=== PATIENT | male | born 1945 | race Caucasian/White ===

== ENCOUNTER → 2017-02-14 | Outpatient (CLI) | payer MEDICARE, BC ==
--- NOTE | 2017-02-14 14:11 | RADRPT ---
PROCEDURE: XR right knee. CLINICAL INDICATION: Knee pain TECHNIQUE: AP weightbearing, PA weightbearing, lateral weightbearing and sunrise views are availab le for review. COMPARISON: None available FINDINGS: There is severe osteoarthrosis involving the lateral tibial femoral compartment and moderate osteoar throsis involving the medial tibial femoral compartment and the patellofemoral compartment. This is associated with joint space narrowing, subchondral sclerosis and osteophytosis. There is otherwise normal mineralization, architecture and alignment. No fractures are identified. No osseous lesions are identified. The soft tissues are unremarkable. IMPRESSION: Severe osteoarthrosis involving the lateral tibial femoral compartment and moderate osteoarthrosis i nvolving the medial tibial femoral compartment and the patellofemoral compartment. RPTAT: HGDB .Gerson Parker MD, Date Time Electronically viewed and signed by .Gerson Parker MD, on 02/14/2017 14:11 .B/
== END | disposition home or self-care (01) ==
LOC: HKI 16:18
PROVIDERS: ATTEND Orthopaedic Surgery
DX: M25.561 Pain in right knee (principal); M17.11 Unilateral primary osteoarthritis, right knee
CPT/HCPCS: 73564; G0463

== ENCOUNTER → 2017-04-20 | Outpatient (CLI) | payer MEDICARE, BC ==
--- NOTE | 2017-04-22 08:20 | RADRPT ---
PROCEDURE: Limited x-ray of both lower extremities. CLINICAL INDICATION: Pain TECHNIQUE: Single frontal view of both lower extremities was obtained weight bearing from the hips t o the calves. COMPARISON: None. FINDINGS: The hips are grossly unremarkable. There is severe joint space narrowing of the right knee lateral compartment. There is mild to moderate joint space narrowing of the left knee medial and lateral com partments. Tricompartmental osteophyte formation is seen involving both knees. IMPRESSION: 1. Severe right knee osteoarthritic degenerative changes. 2. Mild to moderate left knee osteoarthritic degenerative changes. RPTAT: QQ .Ty Villagran MD, MD Date Time Electronically viewed and signed by .Ty Villagran MD, MD on 04/22/2017 08:20 .R/
== END | disposition home or self-care (01) ==
LOC: HKI 10:58
PROVIDERS: ATTEND Orthopaedic Surgery
DX: M25.561 Pain in right knee (principal); M17.11 Unilateral primary osteoarthritis, right knee
CPT/HCPCS: 77073; G0463

== ENCOUNTER 2017-04-26 10:06 | Inpatient (IN) | payer MEDICARE, BC ==
[~2017-04-26] VITALS: Ht 193 cm; Wt 106.0 kg
[2017-04-26] VITALS (17 sets, daily range): BP systolic 130–155; BP diastolic 65–92; PULSE 48–69; RESP 12–20; Ht 193 cm; Wt 106.0 kg
[~2017-04-26 10:06] MED LIST: BUPIVACAINE LIPOSOME/PF 266 MG/20 ML VIAL INFIL ONE; CEFAZOLIN 2GM/50 ML (PMX) 50 ML X1 BEFORE INCISION IVPB ONE; CELECOXIB 400 MG PO X1 DOSE PO ONE; LACTATED RINGER'S 1,000 ML IV SCH; ONDANSETRON 4 MG IV X 1 DOSE IV ONE; PAIN COCKTAIL-CEFUROXIME IRR ONE; PREGABALIN 300 MG PO X1 PO ONE; TRANEXAMIC ACID 1,000 MG in SOD CHLORIDE 0.9% 100 ML IVPB ONE; TRANEXAMIC ACID 1,000 MG in SOD CHLORIDE 0.9% 90 ML IV ONE; oxyCODONE (CR) 10 MG TAB [oxyCONTIN] X1 DOSE PO ONE; traMADOL 50 MG TAB X 1 DOSE PO ONE
[2017-04-26] MEDS ORDERED: LEVO88TA42 PO (10:39)
[2017-04-26] MEDS: traMADol 50 MG TAB PO SCH ×2 (12:00→18:47)
[2017-04-26] MEDS ORDERED: SODIUM CL BACTERIOSTATIC 30 ML INJ ONE (13:21)
[2017-04-26] MEDS ORDERED: VANCOMYCIN 1 GM INJ ONE (13:21)
[2017-04-26] MEDS ORDERED: POLYMYXIN B 500000 UNIT INJ ONE (13:21)
[2017-04-26] MEDS ORDERED: BACITRACIN 50000 UNITS INJ ONE (13:27)
--- NOTE | 2017-04-26 14:25 | HPN ---
Date/Time of Note Date/Time of Note DATE: 04/26/17 TIME: 14:24 Interval H&P Admission Note Pt. seen H&P reviewed: No system changes No changes from H&P on 04/19/17 by GIOVANY Kay MD Apr 26, 2017 14:25
[2017-04-26] MEDS ORDERED: FENTAnyl 50 MCG/ML VIAL ONE (14:38)
[2017-04-26] MEDS ORDERED: MIDAZOLAM 1 MG/ML 2 ML INJ ONE (14:38)
[2017-04-26] MEDS ORDERED: CEFAZOLIN 1 GM INJ ONE (14:38)
[2017-04-26] MEDS ORDERED: METOCLOPRAMIDE 10 MG INJ ONE (14:38)
[2017-04-26] MEDS ORDERED: DEXAMETHASONE 4 MG/ML 1 ML INJ ONE (14:39)
[2017-04-26] MEDS ORDERED: EXPAREL NOTE (BUPIVICAINE LIPOSOMAL) XX SCH (15:00)
[2017-04-26] MEDS ORDERED: HYDROmorphONE (0.2 MG/ML) 10ML SYG IV PRN ×3 (15:30)
[2017-04-26] MEDS ORDERED: MEPERIDINE 25 MG INJ IV PRN (15:30)
[2017-04-26] MEDS ORDERED: DIPHENHYDRAMINE 50 MG INJ IV PRN (15:30)
[2017-04-26] MEDS ORDERED: ONDANSETRON 4 MG INJ IV PRN ×2 (15:30→17:00)
[2017-04-26] MEDS ORDERED: PROPOFOL 100 ML ONE (15:44)
[2017-04-26] MEDS ORDERED: HYDROmorphONE 1 MG/ML SYG IV PRN (17:00)
[2017-04-26] MEDS ORDERED: HYDROCODONE/APAP (7.5/325) TAB PO PRN (17:00)
[2017-04-26] MEDS ORDERED: BISACODYL 10 MG SUPP PR PRN (17:00)
[2017-04-26] MEDS ORDERED: NA PHOSPHATE/BIPHOS 133 ML ENEMA PR PRN (17:00)
[2017-04-26] MEDS ORDERED: NACL 0.9% 3 ML SYG IV SCH (17:00)
[2017-04-26] MEDS ORDERED: DIPHENHYDRAMINE 25 MG CAP PO PRN (17:00)
[2017-04-26] MEDS ORDERED: ASPIRIN (EC) 325 MG TAB PO ONE (17:00)
--- NOTE | 2017-04-26 17:03 | OPR ---
Date/Time of Note Date/Time of Note DATE: 04/26/17 TIME: 17:00 Operative Report Procedure Description DATE: 04/26/2017 PREOPERATIVE DIAGNOSIS: Right knee osteoarthritis POSTOPERATIVE DIAGNOSIS: Right knee osteoarthritis OPERATION PERFORMED: Right total knee arthroplasty. SURGEON: Giovany Cowan MD ANALYTICS SENIOR MANAGER: Lucio Yuan PA-C COMPONENTS USED: DePuy Attune size 7 cruciate retaining femoral component, size 9 tibial baseplate, 6 mm polyethylene insert, 38 patellar button ANESTHESIA: Spinal plus general endotracheal intubation, plus periarticular injection ANESTHESIOLOGIST: Ashlyn Seay M.D. TOURNIQUET TIME: 54 minutes. ESTIMATED BLOOD LOSS: 50 cc INTRAVENOUS FLUIDS: 1,800 cc SPECIMENS: Bone and soft tissue. DRAINS: Hemovac x1. COMPLICATIONS: None. DISPOSITION: The patient tolerated the procedure well and was taken to the recovery room in stable condition. INDICATIONS: The patient is a 71-year-old gentleman who has had progressively worsening pain in the right knee with radiographic evidence of severe osteoarthritis. He has failed nonsurgical means of treatment to address his pain including activity modifications pain medications intra-articular injections and ambulatory assist devices. Despite these measures he has had worsening pain and I feel he will benefit from a total knee arthroplasty The risks, benefits, and alternatives of the procedure were explained in detail to the patient. I explained the risks of the surgery to include but not be limited to, bleeding and possible need for blood transfusion; infection; pain; stiffness; neurovascular injury with possible numbness, weakness, and/or paralysis anywhere from the knee down to the toes; fracture; instability; dislocation; wear and/or loosening of the prosthesis and possible need for future revision; blood clots; pulmonary embolism; and anesthetic complications such as heart attack, stroke, GI bleed, pneumonia, and/or . Ample time was allowed for the patient to ask questions, all of which were addressed and answered. The patient understood the risks involved and wished to proceed. Informed consent was signed prior to the procedure. PROCEDURE: The patient's right knee was initialed with a marking pen in the preoperative area to identify the correct operative site. The patient was brought to the operating room and transferred from the [facility] to the operating table where a spinal anesthetic was administered. The patient was then anesthetized and intubated. A Mcneill catheter was placed. A timeout was performed to confirm that the right leg was the correct operative site. The patient was given 2 g of Ancef within one hour prior to the procedure. A tourniquet was placed on the operative proximal thigh. The operative knee and lower extremity were prepped and draped in the usual sterile fashion. The operative lower extremity was elevated and exsanguinated with an Esmarch tourniquet. The proximal thigh tourniquet was inflated to 300 mmHg. The knee was flexed. A midline incision was made and carried down through the subcutaneous tissue and fat with sharp dissection. Limited medial and lateral flaps were raised. A medium parapatellar approach was performed. Synovial fluid was normal in color and consistency. The patella was everted and the knee flexed. There were severe tricompartmental osteoarthritic changes noted. A medial release was performed at the joint line to the midcoronal plane. The ACL remnants of the menisci were excised. The PCL was intact. The stepped drill was used to open up the femoral canal which was irrigated and sucked dry. The intramedullary guide jaylyn was passed up the femur, and the distal cutting block was pinned into place for a 5 degree valgus cut, taking 10 mm of bone off distally. The oscillating saw was used to make the cut. The tibia was subluxed anteriorly. The tibial cutoff jig was placed over the center of the talus distally and over the junction of the medial and middle third of the tibial tubercle proximally. The guide was pinned into place and the oscillating saw was used to make the cut. The tibia was sized. The extension gap was checked and accommodated a 6 mm spacer block with the knee in full extension. There was no varus or valgus instability. At this point, the femur was sized with the posterior referencing guide. Two holes were drilled in 3 degrees of external rotation. The two holes were in line with the transepicondylar axis, perpendicular to Gunnison's line, and in line with the tibial cutoff jig brought up with the knee flexed 90 degrees and tensed with 2 lamina spreaders, suggesting the femoral rotation was correct. The four-in-one cutting block was pinned into place. The anterior and posterior cuts and chamfer cuts were made with the oscillating saw. The flexion gap was checked and accommodated the 6 mm spacer block at 90 degrees. There was no varus or valgus instability, suggesting the flexion and extension gaps were now equal. The central sulcus was cut out on the femur. The tibia was drilled and punched in proper rotation. Trial components were placed into position with a trial insert. The patella was cut down to 16 mm and sized. Three holes were drilled and the trial button placed in position. With all the trials now in place, the knee was taken through range of motion and came to full extension as evidenced by the fact that with the foot on my abdomen and axial loading, there was no tendency for the knee to flex. The knee was able to be flexed to 125 degrees with good patellar tracking with no lateral tilt or subluxation. At this point, I was satisfied with the overall range of motion, stability, and patellar tracking. The trials were removed. The real components were opened. Two bags of cement were mixed, one with and one without premixed antibiotic. The knee was irrigated with antibiotic saline and sucked dry. Once the cement was in a doughy stage, the real components were cemented into place. The knee was held in full extension, and the patellar component was held with a patellar clamp. All excess cement was removed with curettes. As the cement was hardening, the synovial/capsular layer was infiltrated with a mixture of 150 mg of 0.5% Bupivacaine, 8 mg of Duramorph, 300 mcg of epinephrine, 30 mg of Toradol, 100 mcg of clonidine, 750 mg of cefuroxime and 86 mL of normal saline, followed by an injection of 266 mg of liposomal Bupivacaine. A Hemovac drain was placed in the deep portion of the wound and brought out the anterolateral thigh. Once the cement was completely hardened, the trial liner was removed, and the real insert was opened. The tourniquet was let down, and there was good hemostasis. The knee was then irrigated with a mixture of betadine/saline and then antibiotic saline with pulsatile lavage. The real insert was impacted into the tibia and reduced onto to the femur. The arthrotomy was closed with a few interrupted #1 Ethibond in a figure-of- eight fashion, and then closed in a watertight fashion with a running #2 Stratafix suture. Knee flexion was checked against gravity and came to 125 degrees. The subcutaneous layer was irrigated and closed with 2-0 Statafix, and then 3-0 Vicryl and then mary on the skin. The wound was covered with an occlusive dressing, and secured with cast padding and a bias dressing. The drain was secured with 3-0 nylon. The sponge and needle counts were correct at the end of the case. The patient was then awakened, extubated, and taken to the recovery room in stable condition. GIOVANY COWAN MD Apr 26, 2017 17:03
[2017-04-26 17:14] LABS: HEMATOCRIT 42.6 % (42.0-52.0); HEMOGLOBIN 14.7 g/dl (14.0-18.0)
[2017-04-26] MEDS: CEFAZOLIN 2 GM/50 ML (PMX) 50 ML IVPB SCH (17:21)
--- NOTE | 2017-04-26 17:22 | PN ---
Date/Time of Note Date/Time of Note DATE: 04/26/17 TIME: 17:21 Assessment/Plan Lines/Catheters IV Catheter Type (from Nrsg): Peripheral IV Assessment/Plan Assessment/Plan Stable in PACU, s/p right TKA -continue Ancef -pain meds as needed -ASA/SCDs -OOB with PT -check AM labs -monitor drain -d/c loco in AM XR of the right knee is pending at this time Subjective 24 Hr Interval Summary Stable in PACU. Denies pain. Moving all extremities. Exam/Review of Systems Vital Signs Vitals Vital Signs Date Time Temp Pulse Resp B/P Pulse Ox O2 Delivery O2 Flow Rate FiO2 04/26/17 16:53 98.3 04/26/17 16:51 69 18 150/65 98 Mask Exam Free Text/Dictation Hemovac: minimal Dressing dry Incision clean, dry, and intact without redness or drainage Thigh soft 5/5 Quadriceps, Tibialis Anterior, EHL, Gastroc, Soleus, Peroneals Normal sensation Palpable DT/PT, CR <2 sec No distal edema Results Result Diagram: 04/26/17 1705 ALKA DRUMMOND PA-C Apr 26, 2017 17:22
[2017-04-26] MEDS: PANTOPRAZOLE (EC) 40 MG TAB PO SCH (17:30)
[2017-04-26 17:34] LABS: CALCIUM 8.8 mg/dl (8.4-10.2); CREATININE 0.85 mg/dl (0.61-1.24); POTASSIUM 4.4 mmol/L (3.5-5.1)
--- NOTE | 2017-04-26 17:34 | RADRPT ---
PROCEDURE: Right knee radiographs. CLINICAL INDICATION: Right knee pain. Postop. TECHNIQUE: Two views. Frontal and lateral. COMPARISON: 04/20/2017. FINDINGS: There is no fracture or dislocation. Anterior skin mary and surgical drain are noted. There is a total right knee arthroplasty which appears satisfactory. There is no lytic or blastic lesion. IMPRESSION: 1. Satisfactory postoperative appearance of the right knee. RPTAT: QQ .Nino King MD, MD Date Time Electronically viewed and signed by .Nino King MD, MD on 04/26/2017 17:34 .R/
[2017-04-26] MEDS: LACTATED RINGER'S 1,000 ML IV SCH (18:47)
[2017-04-26] MEDS ORDERED: TRANEXAMIC ACID 1,060 MG in SOD CHLORIDE 0.9% 100 ML IVPB ONE ×2 (20:00→23:00)
[2017-04-26] MEDS: DOCUSATE SODIUM 100 MG CAP PO SCH (20:27)
[2017-04-26] MEDS: PREGABALIN 50 MG CAP PO SCH (20:27)
[2017-04-27] VITALS: BP 120/60; PULSE 58; RESP 18
[2017-04-27 00:11] VITALS: BP 110/60; RESP 17
[2017-04-27] MEDS: LACTATED RINGER'S 1,000 ML IV SCH ×4 (00:22→16:53)
[2017-04-27] MEDS: CEFAZOLIN 2 GM/50 ML (PMX) 50 ML IVPB SCH ×2 (00:23→08:08)
--- NOTE | 2017-04-27 03:58 | CONS ---
DATE OF ADMISSION: 04/26/2017 DATE OF CONSULTATION: 04/26/2017 Thank you very much for allowing me to evaluate the above patient who just underwent right knee replacement. Historical events: As you well know, this patient has had progressive and disabling pain involving his right knee. For this, elected to proceed with surgery. On the orthopedic floor he is comfortable without cough, wheezing, shortness of breath, nausea, vomiting, abdominal or chest pain. PAST MEDICAL HISTORY: Includes hypothyroidism and diabetes as well as repair of a left inguinal hernia, tonsillectomy and varicocele repair. ALLERGIES: NONE. MEDICATION: Levothyroxine 88 mcg per day. FAMILY HISTORY: Positive for an [place], pancreatic cancer. SOCIAL HISTORY: Does not smoke but does drink alcohol. PHYSICAL EXAMINATION: [place] male in no acute distress. VITAL SIGNS: BP 121/80, pulse 70, respirations of 20, he was afebrile. EYES: Extraocular muscles were full. NOSE, MOUTH, AND THROAT: Normal. NECK: Supple. There is no jugular venous distention, thyroid enlargement, or adenopathy. Carotids 2+. No bruits. LUNGS: Clear. HEART: Rhythm regular. No murmur. No 3rd or 4th sound. ABDOMEN: Nontender. Liver and spleen were not palpable. No mass or tenderness were noted. EXTREMITIES: No edema involving the left leg, the right was bandaged. IMPRESSION: 1. Stable postop right knee. 2. History of hypothyroidism. Will continue thyroid replacement. 3. Will evaluate daily for signs and symptoms of thromboembolic disease despite appropriate deep vein thrombosis prophylaxis. 4. History of prediabetes, will monitor sugars. Dictated By: Zaheer Douglas MD /sharad/ /Document#: [id number]
[2017-04-27 05:24] LABS: HEMATOCRIT 40.7 % (42.0-52.0); HEMOGLOBIN 14.1 g/dl (14.0-18.0)
[2017-04-27] MEDS: LEVOTHYROXINE 88 MCG TAB PO SCH (06:07)
[2017-04-27] MEDS: traMADol 50 MG TAB PO SCH ×5 (06:08→23:55)
[2017-04-27] MEDS: PANTOPRAZOLE (EC) 40 MG TAB PO SCH ×2 (06:08→17:52)
[2017-04-27 06:46] LABS: CALCIUM 8.5 mg/dl (8.4-10.2); CREATININE 0.74 mg/dl (0.61-1.24); POTASSIUM 4.4 mmol/L (3.5-5.1)
[2017-04-27 07:16] VITALS: BP 124/62; RESP 19
[2017-04-27] MEDS ORDERED: TRAM50TA2 PO (07:35)
[2017-04-27] MEDS ORDERED: PREG50CA PO (07:35)
[2017-04-27] MEDS ORDERED: ASPI325T32 PO (07:35)
[2017-04-27] MEDS ORDERED: HYDR-3605 PO (07:35)
[2017-04-27] MEDS ORDERED: PANT40TA4 PO (07:35)
--- NOTE | 2017-04-27 07:35 | PDOCDIS ---
Discharge Instructions DIAGNOSIS Discharge Diagnosis s/p right total knee arthroplasty CONDITION Patient Condition: Good HOME CARE INSTRUCTIONS: Diet Instructions: Regular ACTIVITY: Activity Restrictions: Slowly Increase Activity Rest between Activity Avoid heavy lifting Do not operate Machinery Do not operate Power Tool Avoid Heavy Housework Keep Limb Elevated Weight Bearing Bathing Restrictions: Shower FOLLOW UP/APPOINTMENTS Follow-up Plan follow up in the office on 05/06/17 OTHER ORDERS: Other Orders: S/P TKA Physical Therapy: Three times per week at home x 2 weeks Daily in Rehab/SNF WB STATUS: WBAT 1. Strengthening exercises for both upper and un-operated lower extremities. 2. Gait training with front wheeled walker 3. Active range of motion exercises to operative knee. 4. When not working on knee range of motion exercises, distal towel roll under operative ankle/distal calf to promote full extension. 5. DO NOT PUT ANYTHING BEHIND OPERATIVE KNEE!!! 6. Quadriceps and hamstring strengthening. 7. May switch to cane in contra lateral hand 6 weeks after surgery. 8. Physical Therapy can open case if nursing is not available. 9. Use Ice Machine as instructed from date of surgery while at rest 3X/day. 10. Patient requires mobile SCDs to reduce risk of developing DVT following TKA. Patient will use the mobile SCDs for 30 days postoperatively. Bathing assistance by home health aide twice weekly if Medicare patient. Occupational Therapy: Evaluation for assistive devices and ADL training. Wound Care: Keep incision dry & covered with Tegaderm until first visit with Dr. Zhang Anticoagulation Orders: Enteric Coated Aspirin 325 mg po bid x 6 weeks from date of surgery Follow-up:Call for an appointment with Dr. Zhang in 1 week after discharged from hospital at DME Orders: FWLashay, 3-in-1 Commode, Polar ice machine, Mobile SCDs ALKA DRUMMOND PA-C Apr 27, 2017 07:34
[2017-04-27] MEDS: ASPIRIN (EC) 325 MG TAB PO SCH ×2 (08:08→20:53)
[2017-04-27] MEDS: DOCUSATE SODIUM 100 MG CAP PO SCH ×2 (08:08→20:50)
[2017-04-27] MEDS: PREGABALIN 50 MG CAP PO SCH ×2 (08:08→20:53)
--- NOTE | 2017-04-27 08:32 | CONS ---
Date/Time of Note Date/Time of Note DATE: 04/27/17 TIME: 08:28 Assessment/Plan Assessment/Plan Additional Assessment/Plan 1. Status post right knee replacement and doing well 2. History of hypothyroidism presently on replacement. 3. History of elbow elevated blood sugar with acceptable sugars postop. 4. Laboratory studies were reviewed. Consultation Date/Type/Reason Admit Date/Time Apr 26, 2017 at 10:06 Initial Consult Date 24 HR Interval Summary Free Text/Dictation The patient admits to a slight sore throat without difficulty swallowing. He denies cough wheezing shortness of breath chest pain. He denies nausea vomiting or abdominal pain. Mcneill catheter was just removed and he has not voided yet. He has mild right knee pain. Exam/Review of Systems Vital Signs Vitals Vital Signs Date Time Temp Pulse Resp B/P Pulse Ox O2 Delivery O2 Flow Rate FiO2 04/27/17 07:16 97.8 60 19 124/62 96 04/27/17 00:00 Room Air Intake and Output 04/26/17 04/26/17 04/27/17 15:00 23:00 07:00 Intake Total 0 ml 850 ml Output Total 30 ml 1300 ml Balance 0 ml -30 ml -450 ml Exam Exam: Neck: There is no jugular venous distention thyroid enlargement or adenopathy. Lungs: Clear to auscultation and percussion. Heart: No murmur is present S S1 and S2 are normal. Abdomen: Liver and spleen are not enlarged there is no tenderness or masses. Extremities: Left lower extremity revealed no calf tenderness or edema. Right leg was bandaged and there was no calf tenderness. Neurologic: No lateralizing motor weakness was present. Results Result Diagram: 04/27/17 0440 04/27/17 0440 Results 24 hrs Laboratory Tests Test 04/26/17 17:05 04/27/17 04:40 Hemoglobin 14.7 14.1 Hematocrit 42.6 40.7 L Sodium Level 141 135 Potassium Level 4.4 4.4 Chloride Level 104 104 Carbon Dioxide Level 26 25 Anion Gap 15 10 # Blood Urea Nitrogen 13 13 Creatinine 0.85 0.74 Glucose Level 107 114 Calcium Level 8.8 8.5 Medications Medications Current Medications Miscellaneous Information 1 ea 1 ea NOTE XX ; Start 04/26/17 at 15:00; Stop at 14:59 Lactated Ringer's (Lr) 1,000 ml @ 125 mls/hr Q8H IV Last administered on 00:22; Admin Dose 125 MLS/HR; Start 04/26/17 at 16:53 Tramadol HCl (Ultram) 50 mg Q6 PO Last administered on 04/27/17 06:08; Admin Dose 50 MG; Start 04/26/17 at 12:00; Stop 04/29/17 at 11:59 Hydromorphone HCl 1 mg 1 mg Q3H PRN IV PAIN LEVEL 8-10; Start 04/26/17 at 17:00 Cefazolin Sodium/ Dextrose (Ancef 2 Gm/50 ml (Pmx)) 50 ml @ 100 mls/hr Q8H IVPB Last administered on 04/27/17 08:08; Admin Dose 100 MLS/HR; Start at 17:00; Stop 04/27/17 at 09:29 Ondansetron HCl (Zofran Inj) 4 mg Q6H PRN IV NAUSEA AND/OR VOMITING; Start at 17:00 Bisacodyl (Dulcolax Supp) 10 mg Q12H PRN CA CONSTIPATION; Start 04/26/17 at 17: 00 Magnesium Hydroxide (Milk Of Mag) 30 ml BID PRN PO CONSTIPATION; Start at 17:00 Sodium Biphosphate/ Sodium Phosphate (Fleet Enema) 133 ml DAILY PRN CA CONSTIPATION; Start 04/26/17 at 17:00 Docusate Sodium (Colace) 100 mg BID PO Last administered on 04/27/17 08:08; Admin Dose 100 MG; Start 04/26/17 at 21:00 Diphenhydramine HCl (Benadryl) 25 mg Q6H PRN PO PRURITUS; Start 04/26/17 at 17: 00 Acetaminophen/ Hydrocodone Bitart ([place] (7.5-325)) 1 tab Q4H PRN PO PAIN LEVEL 1-3; Start 04/26/17 at 17:00 Acetaminophen/ Hydrocodone Bitart ([place] (7.5-325)) 2 tab Q4H PRN PO PAIN LEVEL 4-7; Start 04/26/17 at 17:00 Aspirin (Ecotrin) 325 mg BID PO Last administered on 8/23/17at 08:08; Admin Dose 325 MG; Start 04/27/17 at 09:00 Pantoprazole (Protonix Tab) 40 mg BID@,18 PO Last administered on 04/27/17 06:08; Admin Dose 40 MG; Start 04/26/17 at 18:00 Pregabalin (Lyrica) 50 mg BID PO Last administered on 04/27/17 08:08; Admin Dose 50 MG; Start 04/26/17 at 21:00 REAL FLORES MD Apr 27, 2017 08:32
--- NOTE | 2017-04-27 08:54 | PN ---
Date/Time of Note Date/Time of Note DATE: 04/27/17 TIME: 08:53 Assessment/Plan Lines/Catheters IV Catheter Type (from Nrsg): Peripheral IV Assessment/Plan Assessment/Plan Stable POD #1, s/p right TKA -d/c Ancef -pain meds as needed -ASA/SCDs -OOB with PT -drain removed -check AM labs -d/c planning for home Subjective 24 Hr Interval Summary No acute overnight events. Denies significant pain. Did not start PT yet. VSS, afebrile. Will plan to go home upon discharge. Exam/Review of Systems Vital Signs Vitals Vital Signs Date Time Temp Pulse Resp B/P Pulse Ox O2 Delivery O2 Flow Rate FiO2 04/27/17 07:16 97.8 60 19 124/62 96 04/27/17 00:00 Room Air Intake and Output 04/26/17 04/26/17 04/27/17 15:00 23:00 07:00 Intake Total 0 ml 850 ml Output Total 30 ml 1300 ml Balance 0 ml -30 ml -450 ml Exam Free Text/Dictation Hemovac: 180cc Dressing dry Incision clean, dry, and intact without redness or drainage Thigh soft 5/5 Quadriceps, Tibialis Anterior, EHL, Gastroc, Soleus, Peroneals Normal sensation Palpable DT/PT, CR <2 sec No distal edema Results Result Diagram: 04/27/1743904/27/17439 ALKA DRUMMOND PA-C Apr 27, 2017 08:54
[2017-04-27 09:32] LABS: ADD UMIC YES; UR ASCORBIC ACID 40 mg/dL (NEGATIVE); UR BILIRUBIN (Dip) NEGATIVE (NEGATIVE); UR BLOOD (Dip) NEGATIVE (NEGATIVE); UR CLARITY CLEAR (CLEAR); UR COLOR YELLOW (YELLOW); UR GLUCOSE (Dip) NEGATIVE (NEGATIVE); UR KETONES (Dip) NEGATIVE (NEGATIVE); UR LEUKOCYTE ESTERASE (Dip) TRACE Leu/ul (NEGATIVE); UR NITRITE (Dip) NEGATIVE (NEGATIVE); UR RBC 3 /HPF (0-5); UR SPECIFIC GRAVITY (Dip) 1.016 (1.003-1.030); UR TOTAL PROTEIN (Dip) NEGATIVE (NEGATIVE); UR UROBILINOGEN (Dip) NEGATIVE (NEGATIVE)
[2017-04-27 13:31] VITALS: BP 131/67; RESP 19
[2017-04-27] MEDS: MAGNESIUM HYDROXIDE 30ML CUP PO PRN (19:05)
[2017-04-27 20:00] VITALS: BP 133/71; RESP 20
[2017-04-28] MEDS: LACTATED RINGER'S 1,000 ML IV SCH ×3 (00:53→16:53)
[2017-04-28 02:00] VITALS: BP 148/80; RESP 20
[2017-04-28] MEDS: traMADol 50 MG TAB PO SCH ×4 (05:23→23:55)
[2017-04-28] MEDS: PANTOPRAZOLE (EC) 40 MG TAB PO SCH ×2 (05:23→18:02)
[2017-04-28 05:29] LABS: HEMATOCRIT 40.2 % (42.0-52.0); HEMOGLOBIN 13.7 g/dl (14.0-18.0)
[2017-04-28 05:50] LABS: CALCIUM 8.4 mg/dl (8.4-10.2); CREATININE 0.82 mg/dl (0.61-1.24); POTASSIUM 4.5 mmol/L (3.5-5.1)
[2017-04-28] MEDS: HYDROCODONE/APAP (7.5/325) TAB PO PRN ×2 (06:23→18:05)
[2017-04-28] MEDS: LEVOTHYROXINE 88 MCG TAB PO SCH (06:23)
--- NOTE | 2017-04-28 07:44 | CONS ---
Date/Time of Note Date/Time of Note DATE: 04/28/17 TIME: 07:42 Assessment/Plan Assessment/Plan Additional Assessment/Plan 1. Status post right knee replacement and doing well 2. History of hypothyroidism presently on replacement. 3. History of e elevated blood suga with sugar now nl 4. Laboratory studies were reviewed. Consultation Date/Type/Reason Admit Date/Time Apr 26, 2017 at 10:06 Detailed Summary Respiratory: No cough, No shortness of breath Cardiovascular: No chest pain, No orthopenea Gastrointestinal: no complaints Genitourinary: no complaints Musculoskeletal: bone/joint pain (mod right knee pain but ambualting well) Exam/Review of Systems Vital Signs Vitals Vital Signs Date Time Temp Pulse Resp B/P Pulse Ox O2 Delivery O2 Flow Rate FiO2 04/28/17 02:00 98.0 58 20 148/80 95 04/27/17 00:00 Room Air Intake and Output 04/27/17 04/27/17 04/28/17 15:00 23:00 07:00 Intake Total 1250 ml 600 ml 1200 ml Output Total 1800 ml Balance 1250 ml 600 ml -600 ml Exam Neck: No jvd Respiratory: clear to auscultation Cardiovascular: regular rate and rhythm Gastrointestinal: soft Extremities: No edema (and no calf tend bilat) Results Result Diagram: 04/28/17 0446 04/28/17 0446 Results 24 hrs Laboratory Tests Test 04/27/17 08:00 04/28/17 04:46 Urine Color YELLOW Urine Clarity CLEAR Urine pH 6.0 Urine Specific [place] 1.016 Urine Ketones NEGATIVE Urine Nitrite NEGATIVE Urine Bilirubin NEGATIVE Urine Urobilinogen NEGATIVE Urine Leukocyte Esterase TRACE A Urine Microscopic RBC 3 Urine Microscopic WBC 3 Urine Hemoglobin NEGATIVE Urine Glucose NEGATIVE Urine Total Protein NEGATIVE Hemoglobin 13.7 L Hematocrit 40.2 L Sodium Level 138 Potassium Level 4.5 Chloride Level 103 Carbon Dioxide Level 29 Anion Gap 11 Blood Urea Nitrogen 18 Creatinine 0.82 Glucose Level 84 Calcium Level 8.4 Medications Medications Current Medications Miscellaneous Information 1 ea 1 ea NOTE XX ; Start 04/26/17 at 15:00; Stop at 14:59 Lactated Ringer's (Lr) 1,000 ml @ 125 mls/hr Q8H IV Last administered on t 12:32; Admin Dose 125 MLS/HR; Start 04/26/17 at 16:53 Tramadol HCl (Ultram) 50 mg Q6 PO Last administered on 04/28/17 05:23; Admin Dose 50 MG; Start 04/26/17 at 12:00; Stop 04/29/17 at 11:59 Hydromorphone HCl (Dilaudid) 1 mg Q3H PRN IV PAIN LEVEL 8-10; Start 04/26/17 at 17:00 Ondansetron HCl (Zofran Inj) 4 mg Q6H PRN IV NAUSEA AND/OR VOMITING; Start at 17:00 Bisacodyl (Dulcolax Supp) 10 mg Q12H PRN [place] CONSTIPATION; Start 04/26/17 at 17: 00 Magnesium Hydroxide (Milk Of Mag) 30 ml BID PRN PO CONSTIPATION Last administered on 04/27/17 19:05; Admin Dose 30 ML; Start 04/26/17 at 17:00 Sodium Biphosphate/ Sodium Phosphate (Fleet Enema) 133 ml DAILY PRN [place] CONSTIPATION; Start 04/26/17 at 17:00 Docusate Sodium (Colace) 100 mg BID PO Last administered on 04/27/17 20:50; Admin Dose 100 MG; Start 04/26/17 at 21:00 Diphenhydramine HCl (Benadryl) 25 mg Q6H PRN PO PRURITUS; Start 04/26/17 at 17: 00 Acetaminophen/ Hydrocodone Bitart ([place] (7.5-325)) 1 tab Q4H PRN PO PAIN LEVEL 1-3 Last administered on 04/28/17 06:23; Admin Dose 1 TAB; Start at 17:00 Acetaminophen/ Hydrocodone Bitart ([place] (7.5-325)) 2 tab Q4H PRN PO PAIN LEVEL 4-7; Start 04/26/17 at 17:00 Aspirin (Ecotrin) 325 mg BID PO Last administered on 04/27/17 20:53; Admin Dose 325 MG; Start 04/27/17 at 09:00 Pantoprazole (Protonix Tab) 40 mg BID@,18 PO Last administered on 04/28/17 05:23; Admin Dose 40 MG; Start 04/26/17 at 18:00 Pregabalin (Lyrica) 50 mg BID PO Last administered on 04/27/17 20:53; Admin Dose 50 MG; Start 04/26/17 at 21:00 REAL FLORES MD Apr 28, 2017 07:43
[2017-04-28 07:49] VITALS: BP 128/75; RESP 20
[2017-04-28] MEDS: PREGABALIN 50 MG CAP PO SCH ×2 (08:56→20:43)
[2017-04-28] MEDS: ASPIRIN (EC) 325 MG TAB PO SCH ×2 (08:56→20:43)
[2017-04-28] MEDS: DOCUSATE SODIUM 100 MG CAP PO SCH ×2 (08:57→20:43)
--- NOTE | 2017-04-28 13:53 | PN ---
Date/Time of Note Date/Time of Note DATE: 04/28/17 TIME: 13:52 Assessment/Plan Lines/Catheters IV Catheter Type (from Nrsg): Saline Lock Mcneill in Place (from Nrsg): No Assessment/Plan Assessment/Plan POD #2, s/p right TKA -pain meds as needed -ASA/SCDs -OOB with PT -dressing changed -check AM labs -plan for d/c home tomorrow Subjective 24 Hr Interval Summary No acute overnight events. Denies significant pain. Progressing with PT. Would like to go home tomorrow. Exam/Review of Systems Vital Signs Vitals Vital Signs Date Time Temp Pulse Resp B/P Pulse Ox O2 Delivery O2 Flow Rate FiO2 04/28/17 07:49 97.9 56 20 128/75 94 04/27/17 00:00 Room Air Intake and Output 04/27/17 04/27/17 04/28/17 15:00 23:00 07:00 Intake Total 1250 ml 600 ml 1200 ml Output Total 1800 ml Balance 1250 ml 600 ml -600 ml Exam Free Text/Dictation Dressing dry Incision clean, dry, and intact without redness or drainage Thigh soft 5/5 Quadriceps, Tibialis Anterior, EHL, Gastroc, Soleus, Peroneals Normal sensation Palpable DT/PT, CR <2 sec No distal edema Results Result Diagram: 04/28/176 04/28/17 0446 ALKA DRUMMOND PA-C Apr 28, 2017 13:53
--- NOTE | 2017-04-28 14:35 | PN ---
Date/Time of Note Date/Time of Note DATE: 04/27/17 TIME: 15:02 Anesthesia note: A 71 year male s/p right knee arthroplastyPOD #1 is going great , no pain, N/V, headache, itching, back pain. ambulated/ care per surgery Assessment/Plan VTE Prophylaxis VTE Prophylaxis Intervention: ambulation Lines/Catheters IV Catheter Type (from Nrs): Saline Lock Urinary Cath still in place: No Exam/Review of Systems Vital Signs Vitals Vital Signs Date Time Temp Pulse Resp B/P Pulse Ox O2 Delivery O2 Flow Rate FiO2 04/28/17 07:49 97.9 56 20 128/75 94 04/27/17 00:00 Room Air Intake and Output 04/27/17 04/27/17 04/28/17 15:00 23:00 07:00 Intake Total 1250 ml 600 ml 1200 ml Output Total 1800 ml Balance 1250 ml 600 ml -600 ml Results Result Diagram: 04/28/17 0446 04/28/17 0446 Results 24 hrs Laboratory Tests Test 04/28/17 04:46 Hemoglobin 13.7 L Hematocrit 40.2 L Sodium Level 138 Potassium Level 4.5 Chloride Level 103 Carbon Dioxide Level 29 Anion Gap 11 Blood Urea Nitrogen 18 Creatinine 0.82 Glucose Level 84 Calcium Level 8.4 Medications Medications Current Medications Miscellaneous Information 1 ea 1 ea NOTE XX ; Start 04/26/17 at 15:00; Stop at 14:59 Lactated Ringer's (Lr) 1,000 ml @ 125 mls/hr Q8H IV Last administered on 12:32; Admin Dose 125 MLS/HR; Start 04/26/17 at 16:53 Tramadol HCl (Ultram) 50 mg Q6 PO Last administered on 04/28/17 12:34; Admin Dose 50 MG; Start 04/26/17 at 12:00; Stop 04/29/17 at 11:59 Hydromorphone HCl (Dilaudid) 1 mg Q3H PRN IV PAIN LEVEL 8-10; Start 04/26/17 at 17:00 Ondansetron HCl (Zofran Inj) 4 mg Q6H PRN IV NAUSEA AND/OR VOMITING; Start at 17:00 Bisacodyl (Dulcolax Supp) 10 mg Q12H PRN [place] CONSTIPATION; Start 04/26/17 at 17: 00 Magnesium Hydroxide (Milk Of Mag) 30 ml BID PRN PO CONSTIPATION Last administered on 04/27/17 19:05; Admin Dose 30 ML; Start 04/26/17 at 17:00 Sodium Biphosphate/ Sodium Phosphate (Fleet Enema) 133 ml DAILY PRN [place] CONSTIPATION; Start 04/26/17 at 17:00 Docusate Sodium (Colace) 100 mg BID PO Last administered on 04/28/17 08:57; Admin Dose 100 MG; Start 04/26/17 at 21:00 Diphenhydramine HCl (Benadryl) 25 mg Q6H PRN PO PRURITUS; Start 04/26/17 at 17: 00 Acetaminophen/ Hydrocodone Bitart ([place] (7.5-325)) 1 tab Q4H PRN PO PAIN LEVEL 1-3 Last administered on 04/28/17 06:23; Admin Dose 1 TAB; Start at 17:00 Acetaminophen/ Hydrocodone Bitart ([place] (7.5-325)) 2 tab Q4H PRN PO PAIN LEVEL 4-7; Start 04/26/17 at 17:00 Aspirin (Ecotrin) 325 mg BID PO Last administered on 04/28/17 08:56; Admin Dose 325 MG; Start 04/27/17 at 09:00 Pantoprazole (Protonix Tab) 40 mg BID@06,18 PO Last administered on 04/28/17 05:23; Admin Dose 40 MG; Start 04/26/17 at 18:00 Pregabalin (Lyrica) 50 mg BID PO Last administered on 04/28/17 08:56; Admin Dose 50 MG; Start 04/26/17 at 21:00 ZOLTAN ALMANZAR MD Apr 28, 2017 14:35
[2017-04-28 15:34] VITALS: BP 150/80; RESP 20
[2017-04-28] MEDS: MAGNESIUM HYDROXIDE 30ML CUP PO PRN (18:02)
[2017-04-28 20:08] VITALS: BP 161/80; RESP 22
[2017-04-28 20:44] VITALS: BP 157/78
[2017-04-29] MEDS: LACTATED RINGER'S 1,000 ML IV SCH ×2 (00:53→08:53)
[2017-04-29] MEDS: HYDROCODONE/APAP (7.5/325) TAB PO PRN ×2 (02:03→13:00)
[2017-04-29 05:23] LABS: HEMATOCRIT 39.5 % (42.0-52.0); HEMOGLOBIN 13.2 g/dl (14.0-18.0)
[2017-04-29 05:41] LABS: CALCIUM 8.5 mg/dl (8.4-10.2); CREATININE 0.78 mg/dl (0.61-1.24); POTASSIUM 4.4 mmol/L (3.5-5.1)
[2017-04-29] MEDS: LEVOTHYROXINE 88 MCG TAB PO SCH (06:15)
[2017-04-29] MEDS: PANTOPRAZOLE (EC) 40 MG TAB PO SCH (06:15)
[2017-04-29] MEDS: traMADol 50 MG TAB PO SCH (06:15)
[2017-04-29 07:59] VITALS: BP 142/73; RESP 16
--- NOTE | 2017-04-29 08:22 | CONS ---
Date/Time of Note Date/Time of Note DATE: 04/29/17 TIME: 08:19 Assessment/Plan Assessment/Plan Additional Assessment/Plan 1. Post op right hip pain doing well. 2. HBP, control has been adequate. 3. Labs reviewed. Consultation Date/Type/Reason Admit Date/Time Apr 26, 2017 at 10:06 Detailed Summary Respiratory: No cough, No shortness of breath Cardiovascular: No chest pain Gastrointestinal: no complaints Genitourinary: no complaints Musculoskeletal: bone/joint pain (mild right knee pain) Exam/Review of Systems Vital Signs Vitals Vital Signs Date Time Temp Pulse Resp B/P Pulse Ox O2 Delivery O2 Flow Rate FiO2 04/29/17 07:59 98.0 61 16 142/73 100 04/27/17 00:00 Room Air Intake and Output 04/28/17 04/28/17 04/29/17 15:00 23:00 07:00 Intake Total 1980 ml 480 ml Output Total 400 ml 2650 ml 1000 ml Balance -400 ml -670 ml -520 ml Exam Neck: No jvd Respiratory: clear to auscultation Cardiovascular: regular rate and rhythm Gastrointestinal: soft Extremities: No edema (and no calf tend) Results Result Diagram: 04/29/17 0435 04/29/17 0435 Results 24 hrs Laboratory Tests Test 04/29/17 04:35 Hemoglobin 13.2 L Hematocrit 39.5 L Sodium Level 140 Potassium Level 4.4 Chloride Level 101 Carbon Dioxide Level 28 Anion Gap 15 Blood Urea Nitrogen 15 Creatinine 0.78 Glucose Level 97 Calcium Level 8.5 Medications Medications Current Medications Miscellaneous Information 1 ea 1 ea NOTE XX ; Start 04/26/17 at 15:00; Stop at 14:59 Lactated Ringer's (Lr) 1,000 ml @ 125 mls/hr Q8H IV Last administered on 12:32; Admin Dose 125 MLS/HR; Start 04/26/17 at 16:53 Tramadol HCl (Ultram) 50 mg Q6 PO Last administered on 04/29/17 06:15; Admin Dose 50 MG; Start 04/26/17 at 12:00; Stop 04/29/17 at 11:59 Hydromorphone HCl (Dilaudid) 1 mg Q3H PRN IV PAIN LEVEL 8-10; Start 04/26/17 at 17:00 Ondansetron HCl (Zofran Inj) 4 mg Q6H PRN IV NAUSEA AND/OR VOMITING; Start at 17:00 Bisacodyl (Dulcolax Supp) 10 mg Q12H PRN [place] CONSTIPATION; Start 04/26/17 at 17: 00 Magnesium Hydroxide (Milk Of Mag) 30 ml BID PRN PO CONSTIPATION Last administered on 04/28/17 18:02; Admin Dose 30 ML; Start 04/26/17 at 17:00 Sodium Biphosphate/ Sodium Phosphate (Fleet Enema) 133 ml DAILY PRN [place] CONSTIPATION; Start 04/26/17 at 17:00 Docusate Sodium (Colace) 100 mg BID PO Last administered on 04/28/17 20:43; Admin Dose 100 MG; Start 04/26/17 at 21:00 Diphenhydramine HCl (Benadryl) 25 mg Q6H PRN PO PRURITUS; Start 04/26/17 at 17: 00 Acetaminophen/ Hydrocodone Bitart ([place] (7.5-325)) 1 tab Q4H PRN PO PAIN LEVEL 1-3 Last administered on 04/29/17 02:03; Admin Dose 1 TAB; Start at 17:00 Acetaminophen/ Hydrocodone Bitart ([place] (7.5-325)) 2 tab Q4H PRN PO PAIN LEVEL 4-7; Start 04/26/17 at 17:00 Aspirin (Ecotrin) 325 mg BID PO Last administered on 04/28/17 20:43; Admin Dose 325 MG; Start 04/27/17 at 09:00 Pantoprazole (Protonix Tab) 40 mg BID@,18 PO Last administered on 04/29/17 06:15; Admin Dose 40 MG; Start 04/26/17 at 18:00 Pregabalin (Lyrica) 50 mg BID PO Last administered on 04/28/17 20:43; Admin Dose 50 MG; Start 04/26/17 at 21:00 REAL FLORES MD Apr 29, 2017 08:22
[2017-04-29] MEDS: DOCUSATE SODIUM 100 MG CAP PO SCH (09:07)
[2017-04-29] MEDS: ASPIRIN (EC) 325 MG TAB PO SCH (09:07)
[2017-04-29] MEDS: PREGABALIN 50 MG CAP PO SCH (09:08)
--- NOTE | 2017-04-29 09:28 | PN ---
Date/Time of Note Date/Time of Note DATE: 04/29/17 TIME: 09:27 Assessment/Plan Lines/Catheters IV Catheter Type (from Nrsg): Saline Lock Mcneill in Place (from Nrsg): No Assessment/Plan Assessment/Plan Stable, POD #3, s/p right TKA -pain meds as needed -ASA/SCDs -OOB with PT -dressing changed -d/c home today -follow up in the office in 1 week Subjective 24 Hr Interval Summary No acute overnight events. Denies significant pain. Progressing with PT. VSS, afebrile. Will plan to go home today. Exam/Review of Systems Vital Signs Vitals Vital Signs Date Time Temp Pulse Resp B/P Pulse Ox O2 Delivery O2 Flow Rate FiO2 04/29/17 07:59 98.0 61 16 142/73 100 04/27/17 00:00 Room Air Intake and Output 04/28/17 04/28/17 04/29/17 14:59 22:59 06:59 Intake Total 1980 ml 480 ml Output Total 400 ml 2650 ml 1000 ml Balance -400 ml -670 ml -520 ml Exam Free Text/Dictation Dressing dry Incision clean, dry, and intact without redness or drainage Thigh soft 5/5 Quadriceps, Tibialis Anterior, EHL, Gastroc, Soleus, Peroneals Normal sensation Palpable DT/PT, CR <2 sec No distal edema Results Result Diagram: 04/29/17 0435 04/29/17 0435 ALKA DRUMMOND PA-C Apr 29, 2017 09:28
--- NOTE | 2017-04-29 14:45 | DS ---
Date/Time of Note Date/Time of Note DATE: 04/29/17 TIME: 14:43 Discharge Summary Admission/Discharge Info Admit Date/Time Apr 26, 2017 at 10:06 Discharge Date/Time Apr 29, 2017 at 14:00 Discharge Diagnosis s/p right total knee arthroplasty Patient Condition: Good Procedures Right total knee arthroplasty Hospital Course This is a 71-year-old male, who was seen in the clinic initially complaining of right knee pain. X-rays demonstrated advanced osteoarthritis of the right knee , and it was thought he would benefit from right total knee arthroplasty. On , the patient was admitted and taken to the operating room, where he underwent a right total knee arthroplasty. There were no intraoperative complications. The patient tolerated the procedure well. He was taken to recovery room in stable condition. Pain was well-controlled oral pain medication. He was started on aspirin and SCDs for DVT prophylaxis. He remained hemodynamically stable and neurovascular intact throughout his hospital stay. He began physical therapy on postoperative day 1, he continued to make good progress. Ultimately he was deemed stable for discharge home on postoperative day 3. Prior to discharge, the incision was inspected and noted to be clean, dry, and intact. Dressing changes were done prior to patient going home. Discharge instructions: Patient will be discharged home in stable condition. He is to resume her normal diet. He is weightbearing as tolerated on the right lower extremity. He will begin physical therapy with home health. He be discharged home with medication noted in its resume all of his normal home medication. The patient is to call the office or go to emergency room for any concerns including increased redness, swelling, drainage, fever, or any concerns regarding the operation or site of incision. Home Meds Active Scripts Tramadol HCl (Tramadol HCl) 50 Mg Tablet, 50 MG PO Q6 for 30 Days, #60 TAB Prov:ALKA DRUMMOND PA-C 04/27/17 Pregabalin* (Lyrica*) 50 Mg Capsule, 50 MG PO BID for 30 Days, #60 CAP Prov:ALKA DRUMMOND PA-C 04/27/17 Pantoprazole* (Pantoprazole*) 40 Mg Tablet.dr, 40 MG PO DAILY for 40 Days, #40 Prov:ALKA DRUMMOND PA-C 04/27/17 Hydrocodone/Acetaminophen (Hydrocodon-Acetaminoph 7.5-325) 1 Each Tablet, 1 TAB PO Q4H Y for PAIN LEVEL 1-3 for 30 Days, #60 TAB Prov:AKLA DRUMMOND PA-C 04/27/17 Aspirin (Aspir-Pat) 325 Mg Tablet., 325 MG PO BID for 40 Days, #80 Prov:ALKA DRUMMOND PA-C 04/27/17 Reported Medications Levothyroxine Sodium* (Levoxyl*) 88 Mcg Tablet, 88 MCG PO BEFORE BREAKFAST, #30 TAB 04/26/17 Follow-up Plan Follow-up in the office on 05/06/[address] Zhang Primary Care Provider Evelio Singer Pending Labs Laboratory Tests Test 04/29/17 04:35 Hemoglobin 13.2g/dl (14.0-18.0) Hematocrit 39.5% (42.0-52.0) Sodium Level 140mmol/L (135-144) Potassium Level 4.4mmol/L (3.5-5.1) Chloride Level 101mmol/L (97-110) Carbon Dioxide Level 28mmol/L (21-31) Anion Gap 15 (8-16) Blood Urea Nitrogen 15mg/dl (7-20) Creatinine 0.78mg/dl (0.61-1.24) Glucose Level 97mg/dl (70-220) Calcium Level 8.5mg/dl (8.4-10.2) ALKA DRUMMOND PA-C Apr 29, 2017 14:45
== END 2017-04-29 14:00 | disposition home health service (06) | DRG 470 ==
LOC: REC 10:06 → MS1 16:00
PROVIDERS: ADMIT Orthopaedic Surgery; ATTEND Orthopaedic Surgery
PROC: 0SRC0J9 Replacement of Right Knee Joint with Synthetic Substitute, Cemented, Open Approach (ICD-10-PCS; principal; 2017-04-26 13:30)
DX: M17.11 Unilateral primary osteoarthritis, right knee (principal); I10 Essential (primary) hypertension; E03.9 Hypothyroidism, unspecified; R73.03 Prediabetes; Z79.82 Long term (current) use of aspirin
CPT/HCPCS: 73560; 80048; 81001; 85014; 85018; 87081; 87086; 88304; 88311; 97110; 97116; 97162; 97166; C1776; C9290; J0171; J0690; J0697; J0735; J1100; J1885; J2250; J2274; J2405; J2765; J3010; J3370; J7120

== ENCOUNTER → 2017-05-06 | Outpatient (CLI) | payer MEDICARE, BC ==
--- NOTE | 2017-04-20 08:16 | PREOPHP ---
DATE OF ADMISSION: 05/06/2017 CHIEF COMPLAINT: Right knee pain, chronic. HISTORY OF PRESENT ILLNESS: This is a 71-year-old male with a 15- year history of right knee osteoarthritis and chronic pain, recently progressing to levels that require treatment. Patient is to undergo a right total knee arthroplasty on April 26, 2017, by Dr. Zhang. PAST MEDICAL HISTORY: Hypothyroidism, prediabetes. SURGICAL HISTORY: Status post left inguinal hernia repairs February 2017, tonsillectomy as a child, right and left inguinal hernia repairs and a varicocele repair, distant. ALLERGIES: NO KNOWN DRUG ALLERGIES. MEDICATIONS: Only levothyroxine 88 mcg 1 daily. FAMILY HISTORY: Father at age 74 of myocardial infarction. Mother at age 93 of pancreatic cancer. 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 REVIEW OF SYSTEMS: HEENT: Negative. HEAD AND NECK: Negative. DERMATOLOGIC: Negative. RESPIRATORY: Negative. CARDIOVASCULAR: Negative. ENDOCRINE: Negative. GASTROINTESTINAL: Negative. GENITOURINARY: Negative. HEMATOLOGIC: Negative. MUSCULOSKELETAL: As per the History of Present Illness, chronic right knee pain progressing over the last year and a half and present x15 years. NEUROLOGIC: Negative. PSYCHIATRIC: Negative. PHYSICAL EXAMINATION: VITAL SIGNS: Blood pressure 148/80, pulse 66, respirations 14, temperature 97.4. Height is 6 feet 4 inches. Weight is 238 pounds. HEENT: Normocephalic, atraumatic. Pupils are equal and round and reactive to light and accommodation. Extraocular muscles are intact. External ear canal is normal with normal tympanic membranes. NECK: Supple without adenopathy. No jugular venous distension. No bruits. CHEST: Clear to auscultation. CARDIAC: Rate and rhythm regular at 66 beats per minute with normal S1 and S2 without murmur. ABDOMEN: Soft, with no hepatosplenomegaly. EXTREMITIES: Reveal right knee osteoarthritic changes and significant crepitus on range of motion. SKIN: Demonstrates no significant lesions. LYMPHATIC: There is no inguinal or axillary adenopathy. GENITOURINARY: Exam is deferred at this time. Prior left inguinal hernia evaluation was negative by the general surgeon. IMPRESSION: 1. Right knee osteoarthritis. 2. Patient is scheduled to undergo right total knee arthroplasty on April 26, 2017, by Dr. Zhang. 3. Medical history of hypothyroidism. PLAN: 1. The risks, benefits and alternatives to surgery have been elevated and discussed with Dr. Zhang and will be further reviewed prior to surgery. All anesthetic risks will be reviewed with Anesthesia. 2. Patient is medically cleared for surgery by myself and I have reviewed surgical risks with the patient as well. 3. Surgical clearance is pending normal laboratories and electrocardiogram and preoperative evaluation by Anesthesia. A chest x-ray was normal in February [address] Zhang has indicated this is reasonable for the patient and does not require a followup chest x-ray. Evelio Singer MD dictating for Leonard Lynn MD Dictated By: MD BRENDON Wilson/sharad/michelle /Document#: [id number] ; Dr. Evelio Singer [id number] [address];
[~2017-05-06] MED LIST changes: +ASPI325T32 PO; -BUPIVACAINE LIPOSOME/PF 266 MG/20 ML VIAL INFIL ONE; -CEFAZOLIN 2GM/50 ML (PMX) 50 ML X1 BEFORE INCISION IVPB ONE; -CELECOXIB 400 MG PO X1 DOSE PO ONE; +HYDR-3605 PO; -LACTATED RINGER'S 1,000 ML IV SCH; +LEVO88TA42 PO; -ONDANSETRON 4 MG IV X 1 DOSE IV ONE; -PAIN COCKTAIL-CEFUROXIME IRR ONE; +PANT40TA4 PO; +PREG50CA PO; -PREGABALIN 300 MG PO X1 PO ONE; +TRAM50TA2 PO; -TRANEXAMIC ACID 1,000 MG in SOD CHLORIDE 0.9% 100 ML IVPB ONE; -TRANEXAMIC ACID 1,000 MG in SOD CHLORIDE 0.9% 90 ML IV ONE; -oxyCODONE (CR) 10 MG TAB [oxyCONTIN] X1 DOSE PO ONE; -traMADOL 50 MG TAB X 1 DOSE PO ONE
--- NOTE | 2017-05-06 09:50 | PN ---
Date/Time of Note Date/Time of Note DATE: 05/06/17 TIME: 09:47 Outpatient Progress Note HPI The patient presents today for a follow-up evaluation on his right knee. He is 10 days status post right total knee arthroplasty. He is doing well overall. He is having moderate pain but is controlling with [place]. He is also taking aspirin twice daily for DVT prophylaxis. He denies any fevers or chills. He is doing physical therapy with home health. He presents today for his first postoperative evaluation. Physical Exam On exam today, he is alert and oriented 4, and in no acute distress. -Exam of the incision, demonstrates it to be clean, dry, and intact. Mary are in place. There is no erythema, pus, or drainage noted. His range of motion is 0- 75. Varus valgus forces are stable. Compartments are soft. Homans sign is negative. He is neurovascularly intact distally. Imaging: X-rays of the right knee were obtained today and reviewed by me. They demonstrate good anatomic alignment with no fractures or dislocations identified Allergies Coded Allergies: No Known Allergies (Verified Allergy, Unknown, 04/26/17) Assessment/Plan Assessment: 10 days status post right total knee arthroplasty Plan: The patients mary removed today, and Steri-Strips were applied. He is to continue doing physical therapy with home health and transition to outpatient physical therapy program. He is also continue aspirin 325 mg twice daily for DVT prophylaxis. He will follow-up with Dr. Zhang at [facility] in 4 weeks for repeat evaluation. Medications Home Meds Active Scripts Tramadol HCl (Tramadol HCl) 50 Mg Tablet, 50 MG PO Q6 for 30 Days, #60 TAB Prov:ALKA DRUMMOND PA-C 04/27/17 Pregabalin* (Lyrica*) 50 Mg Capsule, 50 MG PO BID for 30 Days, #60 CAP Prov:ALKA DRUMMOND PA-C 04/27/17 Pantoprazole* (Pantoprazole*) 40 Mg Tablet., 40 MG PO DAILY for 40 Days, #40 Prov:ALKA DRUMMOND PA-C 04/27/17 Hydrocodone/Acetaminophen (Hydrocodon-Acetaminoph 7.5-325) 1 Each Tablet, 1 TAB PO Q4H Y for PAIN LEVEL 1-3 for 30 Days, #60 TAB Prov:ALKA DRUMMOND PA-C 04/27/17 Aspirin (Aspir-Pat) 325 Mg Tablet., 325 MG PO BID for 40 Days, #80 Prov:ALKA DRUMMOND PA-C 04/27/17 Reported Medications Levothyroxine Sodium* (Levoxyl*) 88 Mcg Tablet, 88 MCG PO BEFORE BREAKFAST, #30 TAB 04/26/17 ALKA DRUMMOND PA-C May 06, 2017 09:50
--- NOTE | 2017-05-06 14:20 | RADRPT ---
PROCEDURE: Right knee radiographs. CLINICAL INDICATION: Right knee pain. Postop. TECHNIQUE: Two views. Frontal and lateral. COMPARISON: 04/26/2017. FINDINGS: There is no fracture or dislocation. Anterior skin mary and surgical drain have been removed. There is a total right knee arthroplasty which appears satisfactory. There is no lytic or blastic lesion. IMPRESSION: 1. Satisfactory postoperative appearance of the right knee. RPTAT: QQ .Nino King MD, MD Date Time Electronically viewed and signed by .Nino King MD, on 05/06/2017 14:20 .R/
== END | disposition home or self-care (01) ==
LOC: HKI 09:32
PROVIDERS: ATTEND Orthopaedic Surgery
DX: M25.561 Pain in right knee (principal); Z09 Encounter for follow-up examination after completed treatment for conditions other than malignant neoplasm; Z96.651 Presence of right artificial knee joint; Z79.82 Long term (current) use of aspirin